=== PATIENT | female | born 1985 | race American Indian/Alaskan Native ===

== ENCOUNTER 2018-01-02 09:13 | Day surgery (SDC) | payer MEDICAID ==
[2018-01-02] MEDS ORDERED: Lactated Ringer's 500 ML IV ONE (09:41)
[2018-01-02] MEDS ORDERED: Propofol 10 mg/ml Inj (20 ML) ONE (12:03)
[2018-01-02 12:48] VITALS: TEMP 98
[2018-01-02 13:12] VITALS: BP 111/56; PULSE 79; RESP 14; O2SAT 99
== END 2018-01-02 13:13 | disposition home or self-care (01) ==
LOC: H.ENDO 09:13
PROVIDERS: ATTEND Internal Medicine Gastroenterology
DX: R10.32 Left lower quadrant pain (principal); K64.0 First degree hemorrhoids; K30 Functional dyspepsia; K31.89 Other diseases of stomach and duodenum
CPT/HCPCS: 43239; 45378; 88305; J2704; J7120